=== PATIENT | male | born 1995 | race Caucasian/White ===

== ENCOUNTER 2021-05-11 20:51 | Emergency (ER) | payer BC, OTHER | END 2021-05-11 21:54 | disposition left against medical advice (07) | LOC: CSHERS 20:51 | DX: Z53.21 Procedure and treatment not carried out due to patient leaving prior to being seen by health care provider (principal) ==

== ENCOUNTER 2025-07-18 18:59 | Emergency (ER) | payer OTHER ==
[2025-07-18] MEDS ORDERED: diphenhydrAMINE 50 MG/ML VIAL ONE (19:59)
[2025-07-18] MEDS ORDERED: Metoclopramide HCl 10 MG (2 mL) VIAL ONE (20:00)
[2025-07-18] MEDS ORDERED: Acetaminophen 500 MG TAB ONE (20:58)
[2025-07-18] MEDS ORDERED: Ketorolac Tromethamine 30 MG (1 mL) VIAL ONE (20:58)
[2025-07-18] MEDS ORDERED: Magnesium 2 GM/50 ML BAG (IN WATER) ONE (21:58)
[2025-07-18] MEDS ORDERED: Ondansetron PF 4 MG/2 ML Vial ONE (22:19)
[2025-07-18] MEDS ORDERED: Fioricet 325/50/40 mg Tablet PO SCH (22:45)
== END 2025-07-18 23:24 | disposition home or self-care (01) ==
LOC: CSHERS 18:59
DX: R51.9 Headache, unspecified (principal); I10 Essential (primary) hypertension
CPT/HCPCS: 70450; 96365; 96375; J1200; J1885; J2272; J2405; J2765; J2919; J3475